=== PATIENT | male | born 1965 | race Caucasian/White ===

== ENCOUNTER 2018-11-18 09:14 | Emergency (ER) | payer OTHER ==
[2018-11-18 10:03] VITALS: BP 125/88
--- NOTE | 2018-11-18 10:53 | UC ---
Hand/Wrist HPI - HPI Summary HPI Summary: Patient presents to urgent care for evaluation of his left wrist. Patient's right-hand dominant. Patient states yesterday at work he was trying to dislodge an extension cord. Patient states he was pulling on it like a wave his hand struck a pole. Patient states she's had pain in the dorsum of his wrist since. Patient was swelling. No paresthesias. Patient did not take any analgesia today. Patient did take non-aspirin last night. Patient states he broke a bone in his left hand one year ago was treated by Dr. Jones. - History Of Current Complaint Chief Complaint: UCUpperExtremity Stated Complaint: WC LEFT WRIST INJURY Time Seen by Provider: 11/18/18 10:50 Hx Obtained From: Patient Severity Currently: Moderate Pain Intensity: 4 - Allergies/Home Medications Allergies/Adverse Reactions: Allergies Allergy/AdvReac Type Severity Reaction Status Date / Time No Known Allergies Allergy Verified 11/18/18 10:04 Home Medications: Home Medications Aspirin 2 tab PO ONCE 11/18/18 [History Confirmed 11/18/18] PMH/Surg Hx/FS Hx/Imm Hx Previously Healthy: Yes - Surgical History Surgical History: None - Family History Known Family History: Positive: Hypertension, Non-Contributory - Social History Occupation: Employed Full-time Lives: With Family Alcohol Use: Occasionally Substance Use Type: None Smoking Status (MU): Heavy Every Day Tobacco Smoker Type: Cigarettes Amount Used/How Often: 1 PPD Review of Systems All Other Systems Reviewed And Are Negative: Yes Skin: Positive: Other - Right wrist swelling Motor: Positive: Other - Right wrist pain Physical Exam - Summary Physical Exam Summary: Vital Signs Reviewed: Yes A+Ox3, no distress Eyes: Conjunctiva Clear ENT: Hearing grossly normal neck: supple Respiratory: Positive: No respiratory distress, No accessory muscle use Cardiovascular: skin color reflect adequate perfusion 2+ radial, ulnar Musculoskeletal Exam: KAYE x 4 without difficulty + flex/ext elbow + pronate/ supinate with pain dorsum wrist pain with flex/ext wrist + thumb up, finger spread, finger cross Neurological: Positive: Alert, ambulatory without difficulty + gross sensation throughout Psychological: Positive: Normal Response To examiner Skin: Positive: no rash, no ecchymosis, + edema dorsum wrist Triage Information Reviewed: Yes Vital Signs: Initial Vital Signs Temp 99 F 11/18/18 09:59 Pulse 82 09/20/19 09:59 Resp 15 11/18/18 09:59 BP 125/88 11/18/18 09:59 Pulse Ox 98 11/18/18 09:59 Diagnostics - Radiology No standard instances Radiology Interpretation Completed By: Radiologist - Patient Name: DARIEL WETZEL Medical Record#: [id number] Ordering Physician: Sharri Toledo MD Acct.#: [id number] : 1965 Age: 53 Sex: M Location: [facility] Exam Date: 11/18/18 1006 ADM Status: REG ER Order Information: WRIST LEFT 3+ VWS Accession Number: [id number] CPT: 90709 INDICATION: Left wrist injury. TECHNIQUE: 3 views of the left wrist were obtained. FINDINGS: There is diffuse soft tissue swelling. There is a transverse slightly comminuted intra-articular mildly impacted fracture of the distal radius. There may be a tiny avulsion fracture fragment arising from the ulnar styloid process. IMPRESSION: 1. TRANSVERSE COMMINUTED INTRA-ARTICULAR SLIGHTLY IMPACTED FRACTURE OF THE DISTAL RADIUS. 2. POSSIBLE TINY AVULSION FRACTURE FRAGMENT ARISING FROM THE ULNAR STYLOID PROCESS. < Electronically signed by Lalito Amaral MD in OV> 11/18/18 1036 Dictated By: Lalito Amaral MD Dictated Date/Time: 11/18/18 1034 Transcribed Date/Time: 1034 Copy to: CC:[facility]; Sharri Toledo MD; No Primary Care Phys,[facility] - [facility] [address] [address] ph ([phone]) ph ([phone]) ph ([phone]) This report is only to be considered final once signed by the Provider(s) as displayed in the "< Electronically Signed by >" field (s). Absence of a signature indicates the report is in a draft status and still needs to be finalized. In the event this document was created by someone other than the signing Provider, the individual initiating the document will be listed in the "Entered by:" or "Dictated by:" celeste. 1 of 1 Hand/Wrist Course/Dx - Course Course Of Treatment: Patient presents to urgent care reporting pain in his right wrist. Patient states yesterday his hands focal he was pulling traction and struck a pole. Patient's left hand dominant. On exam vital signs are stable. Patient with edema and tenderness to the dorsum of his distal radius over the wrist. No snuffbox tenderness. X-ray shows a comminuted impacted interarticular fracture of the right radius. I spoke to Dr. Jones's office will see the patient in 20 minutes. Patient declined a splinter sling. Patient declined analgesia. Patient was given ice pack. Patient discharged with directly to Dr. Jones's office for further immobilization. Patient was shown the x-ray results were discussed - Differential Dx/Diagnosis Provider Diagnosis: Displaced fracture of left radius Discharge ED - Sign-Out/Discharge Documenting (check all that apply): Patient Departure All imaging exams completed and their final reports reviewed: Yes - Discharge Plan Condition: Stable Disposition: HOME Patient Education Materials: Wrist Fracture in Adults (ED) Referrals: Hany Jones MD [Medical Doctor] - (11:30 today) No Primary Care Phys,[facility] [Primary Care Provider] - Additional Instructions: - Okay to alternate ibuprofen (Advil, Motrin)600mg and Tylenol (acetaminophen) every 3 hours for pain or fever. Take with food. Do NOT take for more than 4-5 days. - Apply ice (wrapped in a towel) 20 minutes at a time, 2-3 times a day - elevate your arm to help with swelling and pain - Go directly to Dr. Jones's office - he will see you at 11:30am today - Billing Disposition and Condition Condition: STABLE Disposition: Home
== END 2018-11-18 11:09 | disposition home or self-care (01) ==
LOC: UCCORT 09:14
DX: S52.572A Other intraarticular fracture of lower end of left radius, initial encounter for closed fracture (principal); W22.8XXA Striking against or struck by other objects, initial encounter; Y93.89 Activity, other specified; Y92.89 Other specified places as the place of occurrence of the external cause; Y99.0 Civilian activity done for income or pay; F17.210 Nicotine dependence, cigarettes, uncomplicated; Z87.81 Personal history of (healed) traumatic fracture
CPT/HCPCS: 99211; G0463